=== PATIENT | female | born 1950 | race African-American/Black ===

== ENCOUNTER 2021-07-21 13:45 | Inpatient (IN) ==
[2021-07-21] MEDS ORDERED: HYDROmorphone 1 MG/1 ML SYRINGE IV STA (14:06)
[2021-07-21] MEDS ORDERED: ONDANSETRON ODT 4 MG TABLET PO STA (14:06)
[2021-07-21] MEDS ORDERED: ONDANSETRON 4 MG/2 ML VIAL ONE (14:15)
[2021-07-21 14:53] LABS: PT Patient Result 11.4 SECS (10.5-12.0); Partial Thromboplastin Time 24.8 SECS (23.8-32.1)
[2021-07-21] MEDS ORDERED: GLUCAGON 1 MG VIAL IM PRN (15:01)
[2021-07-21] MEDS ORDERED: ONDANSETRON 4 MG/2 ML VIAL IV PRN (15:01)
[2021-07-21] MEDS ORDERED: LACTULOSE 20 GM/30 ML UDCUP PO PRN (15:01)
[2021-07-21] MEDS ORDERED: DOCUSATE SODIUM 100 MG CAPSULE PO PRN (15:01)
[2021-07-21] MEDS ORDERED: DEXTROSE 10% 250 ML BAG IV PRN (15:12)
[2021-07-21] MEDS: DEXTROSE 5% NACL 0.45% 1,000 ML IV SCH (16:50)
[2021-07-21] MEDS: levETIRAcetam 500 MG TABLET PO SCH (21:58)
[2021-07-22] MEDS: HYDROmorphone 1 MG/1 ML SYRINGE IV PRN ×3 (01:11→17:03)
[2021-07-22 04:55] LABS: Basophils % 0.3 % (0.0-0.8); Eosinophils # 0.2 10*3/uL (0.0-0.87); Eosinophils % 2.8 % (0.00-10.9); Hematocrit 32.8 VOL% (35.7-47.0); Hemoglobin 10.4 GM/DL (12.0-16.0); Immature Granulocytes % 0.3 %; Immature Granulocytes Absolute 0.02 #; Lymphocytes # 1.8 10*3/uL (1.4-4.0); Lymphocytes % 23.5 % (21.3-54.2); Mean Corpuscular HGB Conc 31.7 GM/DL (32-36); Mean Corpuscular Volume 87.2 FL (87-102); Mean Platelet Volume 11.8 FL (9.6-12.0); Monocytes # 0.5 10*3/uL (0.11-0.8); Monocytes % 5.8 % (1.7-12.7); Neutrophils % 67.3 % (38.7-73.9); Platelet Count 151 T/CUMM (130-400); Red Blood Count 3.76 MC/CUMM (3.8-5.5); Red Cell Distribution Width 14.5 % (9.3-17.3); White Blood Count 7.7 T/CUMM (4-12)
[2021-07-22 05:15] LABS: Albumin 3.2 G/DL (3.4-5.0); Bilirubin,Total 0.9 MG/DL (0.20-1.00); Calcium 9.1 MG/DL (8.5-10.1); Osmolality,Calculated 279.7 MOS/KG (273-304); Potassium 3.2 MMOL/L (3.5-5.1); Thyroid Stimulating Hormone 1.76 uIU/ml (0.358-3.74); Total Protein 7.3 G/DL (6.4-8.2)
[2021-07-22] MEDS ORDERED: POTASSIUM CHLORIDE 20 MEQ TABLET PO ONE (07:30)
[2021-07-22] MEDS ORDERED: propofoL 200 MG/20 ML VIAL IV ONE (08:02)
[2021-07-22] MEDS ORDERED: LIDOCAINE 2% 5 ML VIAL ONE (08:02)
[2021-07-22] MEDS ORDERED: ROCURONIUM 50 MG/5 ML VIAL IV ONE (08:02)
[2021-07-22] MEDS ORDERED: MIDAZOLAM 2 MG/2 ML VIAL ONE (08:03)
[2021-07-22] MEDS ORDERED: fentaNYL 100 MCG/2 ML VIAL ONE (08:03)
[2021-07-22] MEDS ORDERED: LIDOCAINE 1% 5 ML VIAL ONE (08:08)
[2021-07-22] MEDS ORDERED: BUPIVACAINE MPF 0.25% 30 ML VIAL ONE (08:08)
[2021-07-22] MEDS: levETIRAcetam 500 MG TABLET PO SCH ×2 (08:09→21:03)
[2021-07-22] MEDS: DEXTROSE 5% NACL 0.45% 1,000 ML IV SCH (08:10)
[2021-07-22] MEDS: ASPIRIN EC 81 MG TABLET PO SCH (08:10)
[2021-07-22] MEDS ORDERED: CLINDAMYCIN INJ 900 MG/50 ML PREMIX IV ONE (08:24)
[2021-07-22] MEDS ORDERED: LACTATED RINGERS 1,000 ML IV SCH (09:00)
[2021-07-22] MEDS ORDERED: BISACODYL 10 MG SUPP RECTAL PRN (09:09)
[2021-07-22] MEDS ORDERED: diphenhydrAMINE CAP 25 MG CAPSULE PO PRN (09:09)
[2021-07-22] MEDS ORDERED: MAGNESIUM HYDROXIDE SUSP 30 ML UDCUP PO PRN (09:09)
[2021-07-22] MEDS ORDERED: MELOXICAM 7.5 MG TABLET PO PRN (09:12)
[2021-07-22] MEDS ORDERED: ACETAMINOPHEN 325 MG TABLET PO PRN (09:12)
[2021-07-22] MEDS ORDERED: ePHEDrine 50 MG/ML VIAL ONE (09:18)
[2021-07-22] MEDS ORDERED: NEOSTIGMINE 10 MG/10 ML VIAL ONE (09:48)
[2021-07-22] MEDS ORDERED: GLYCOPYRROLATE 0.4 MG/2 ML VIAL ONE (09:48)
[2021-07-22] MEDS ORDERED: SEVOFLURANE 1 UNIT/15 MINUTE INH ONE (09:49)
[2021-07-22] MEDS ORDERED: ONDANSETRON 4 MG/2 ML VIAL ONE (09:49)
[2021-07-22] MEDS ORDERED: TUBERCULIN SKIN TEST 0.1 ML SYRINGE INTRADERM ONE (14:30)
[2021-07-22] MEDS: CLINDAMYCIN INJ 900 MG/50 ML PREMIX IV SCH ×2 (16:36→23:12)
[2021-07-22] MEDS: FONDAPARINUX 2.5 MG/0.5 ML SYRINGE SUBCUT SCH (21:02)
[2021-07-22] MEDS: GABAPENTIN 100 MG CAPSULE PO SCH (21:03)
[2021-07-22] MEDS: MECLIZINE 25 MG TABLET PO SCH (21:03)
[2021-07-22] MEDS: ATORVASTATIN 80 MG TABLET PO SCH (21:03)
[2021-07-22] MEDS: POTASSIUM CHLORIDE 20 MEQ TABLET PO SCH (21:03)
[2021-07-23] MEDS: DEXTROSE 5% NACL 0.45% 1,000 ML IV SCH ×2 (04:44→17:00)
[2021-07-23 05:26] LABS: Basophils % 0.2 % (0.0-0.8); Eosinophils # 0.2 10*3/uL (0.0-0.87); Eosinophils % 2.6 % (0.00-10.9); Hemoglobin 9.9 GM/DL (12.0-16.0); Immature Granulocytes % 0.2 %; Immature Granulocytes Absolute 0.02 #; Lymphocytes # 1.9 10*3/uL (1.4-4.0); Lymphocytes % 22.9 % (21.3-54.2); Mean Corpuscular HGB Conc 31.9 GM/DL (32-36); Mean Corpuscular Volume 86.6 FL (87-102); Mean Platelet Volume 12.3 FL (9.6-12.0); Monocytes # 0.5 10*3/uL (0.11-0.8); Monocytes % 6.4 % (1.7-12.7); Neutrophils % 67.7 % (38.7-73.9); Platelet Count 136 T/CUMM (130-400); Red Blood Count 3.58 MC/CUMM (3.8-5.5); Red Cell Distribution Width 14.5 % (9.3-17.3); White Blood Count 8.2 T/CUMM (4-12)
[2021-07-23 05:32] LABS: Calcium 8.8 MG/DL (8.5-10.1); Osmolality,Calculated 280.3 MOS/KG (273-304); Potassium 3.2 MMOL/L (3.5-5.1)
[2021-07-23] MEDS: MECLIZINE 25 MG TABLET PO SCH ×2 (08:22→21:16)
[2021-07-23] MEDS: LOSARTAN 50 MG TABLET PO SCH (08:23)
[2021-07-23] MEDS: ASPIRIN EC 81 MG TABLET PO SCH (08:23)
[2021-07-23] MEDS: GABAPENTIN 100 MG CAPSULE PO SCH ×2 (08:23→21:17)
[2021-07-23] MEDS: CHLORTHALIDONE 25 MG TABLET PO SCH (08:24)
[2021-07-23] MEDS: amLODIPine 10 MG TABLET PO SCH (08:24)
[2021-07-23] MEDS: PANTOPRAZOLE 40 MG TABLET PO SCH (08:24)
[2021-07-23] MEDS: POTASSIUM CHLORIDE 20 MEQ TABLET PO SCH ×2 (08:24→21:16)
[2021-07-23] MEDS: levETIRAcetam 500 MG TABLET PO SCH ×2 (08:24→21:17)
[2021-07-23] MEDS ORDERED: CLOPIDOGREL 75 MG TABLET PO SCH (09:00)
[2021-07-23] MEDS ORDERED: PANTOPRAZOLE 40 MG TABLET PO SCH (09:00)
[2021-07-23] MEDS ORDERED: POTASSIUM CHLORIDE 20 MEQ TABLET PO ONE (09:30)
[2021-07-23 15:45] LABS: % Iron Saturation 9.9 % (18-50)
[2021-07-23 16:08] LABS: Folate 13.33 NG/ML (5.38-24.0)
[2021-07-23] MEDS: FONDAPARINUX 2.5 MG/0.5 ML SYRINGE SUBCUT SCH (21:16)
[2021-07-23] MEDS: ATORVASTATIN 80 MG TABLET PO SCH (21:16)
[2021-07-24 05:28] LABS: Basophils % 0.4 % (0.0-0.8); Eosinophils # 0.3 10*3/uL (0.0-0.87); Eosinophils % 3.2 % (0.00-10.9); Hematocrit 31.5 VOL% (35.7-47.0); Hemoglobin 9.8 GM/DL (12.0-16.0); Immature Granulocytes % 0.4 %; Immature Granulocytes Absolute 0.03 #; Lymphocytes # 2.1 10*3/uL (1.4-4.0); Lymphocytes % 25.2 % (21.3-54.2); Mean Corpuscular HGB Conc 31.1 GM/DL (32-36); Mean Corpuscular Volume 87.5 FL (87-102); Mean Platelet Volume 12.1 FL (9.6-12.0); Monocytes # 0.7 10*3/uL (0.11-0.8); Neutrophils % 62.8 % (38.7-73.9); Platelet Count 146 T/CUMM (130-400); Red Cell Distribution Width 14.7 % (9.3-17.3); White Blood Count 8.3 T/CUMM (4-12)
[2021-07-24] MEDS: DEXTROSE 5% NACL 0.45% 1,000 ML IV SCH (05:35)
[2021-07-24 05:47] LABS: Calcium 9.3 MG/DL (8.5-10.1); Osmolality,Calculated 277.4 MOS/KG (273-304); Potassium 3.6 MMOL/L (3.5-5.1)
[2021-07-24] MEDS: POTASSIUM CHLORIDE 20 MEQ TABLET PO SCH (08:31)
[2021-07-24] MEDS: LOSARTAN 50 MG TABLET PO SCH (08:33)
[2021-07-24] MEDS: MECLIZINE 25 MG TABLET PO SCH (08:33)
[2021-07-24] MEDS: amLODIPine 10 MG TABLET PO SCH (08:33)
[2021-07-24] MEDS: levETIRAcetam 500 MG TABLET PO SCH (08:34)
[2021-07-24] MEDS: GABAPENTIN 100 MG CAPSULE PO SCH (08:34)
[2021-07-24] MEDS: CHLORTHALIDONE 25 MG TABLET PO SCH (08:34)
[2021-07-24] MEDS: PANTOPRAZOLE 40 MG TABLET PO SCH (08:36)
[2021-07-24] MEDS: ASPIRIN EC 81 MG TABLET PO SCH (08:36)
[2021-07-24 11:57] VITALS: BP 144/65
== END 2021-07-24 13:25 | DRG 481 ==
LOC: N.ED 13:45 → N.EDINP 14:49 → SUATTDRO 14:49 → N.3E 16:51
PROVIDERS: ADMIT Hospitalist; ATTEND Internal Medicine